=== PATIENT | female | born 1995 | race Two or more races ===

== ENCOUNTER 2025-02-18 08:28 | Emergency (ER) | payer OTHER ==
[~2025-02-18] VITALS: Ht 170.2 cm; Wt 107.0 kg
[2025-02-18 08:57] VITALS: BP 129/85; PULSE 100; RESP 16; TEMP 97.9; O2SAT 99
[2025-02-18] MEDS: ONDANSETRON HCL 4 MG/2 ML VIAL IV ONE (09:33)
--- NOTE | 2025-02-18 10:21 | ED.PDOC ---
GI ASSESSMENT HPI Comments 29 y/o F, presents to the ED for CC of abdominal pain. Patient states, she has been experiencing symptoms of nausea/vomiting onset, x3days ago. Patient further relays, to have associated symptoms of weakness and faintness. Patient reports, to have had a paracentesis prior to commencement of symptoms on Monday (02/14/25); endorses 5L of fluid being removed. Patient comments, being seen by PCP and being told to have x2 growths on her liver concerning for possible cirrhosis. Patient denies disorientation, confusion, headaches with aura, extremity swelling, diarrhea, or melena. No other symptoms or modifying factors are present at this time. Chief Complaint: Nausea/Vomiting Time Seen by MD: 09:50 Reviewed Notes: Nurses Notes, Medications, Allergies Allergies: Coded Allergies: NO KNOWN ALLERGIES (Unverified , 02/18/25) Information Source: Patient Mode of Arrival: Ambulatory Timing: Days Duration: Since onset Prehospital treatment: None Vomitus: Watery Stool: Normal Severity: Moderate Recent: None Recent Hx of: None Modifying Factors: Nothing Associated sign and symptoms: Nausea, Vomiting, Faintness Past Medical History PAST MEDICAL HISTORY: Denies Surgical History: Denies all surgeries ARBORIST History: Denies all ARBORIST Hx Family History Family History: Unknown Social History Smoker: Non-Smoker Alcohol: Denies ETOH Use Drugs: Denies Drug Use Lives In: Home Constitutional: denies: chills, diaphoresis, fatigue, fever, malaise, sweats, weakness, others EENTM: denies: blurred vision, double vision, ear bleeding, ear discharge, ear drainage, ear pain, ear ringing, eye pain, eye redness, hearing loss, mouth pain, mouth swelling, nasal discharge, nose bleeding, nose congestion, nose pain, photophobia, tearing, throat pain, throat swelling, voice changes, others Respiratory: denies: cough, hemoptysis, orthopnea, SOB at rest, shortness of breath, SOB with excertion, stridor, wheezing, others Cardiovascular: denies: chest pain, dizzy spells, diaphoresis, Dyspnea on exertion, edema, irregular heart beat, left arm pain, lightheadedness, palpitations, PND, syncope, others Gastrointestinal: reports: nausea, vomiting; denies: abdomen distended, abdominal pain, blood streaked bowels, constipated, diarrhea, dysphagia, difficulty swallowing, hematemesis, melena, poor appetite, poor fluid intake, rectal bleeding, rectal pain, others Genitourinary: denies: abnormal vagina bleeding, burning, dyspareunia, dysuria, flank pain, frequency, hematuria, incontinence, pain, , vagina discharge, urgency, others Neurological: reports: dizziness, others (faintness); denies: fainting, headache, left sided numbness, left sided weakness, numbness, paresthesia, pre- existing deficit, right sided numbness, right sided weakness, seizure, speech problems, tingling, tremors, weakness Musculoskeletal: denies: back pain, gout, joint pain, joint swelling, muscle pain, muscle stiffness, neck pain, others Integumetry: denies: bruises, change in color, change in hair/nails, dryness, laceration, lesions, lumps, rash, wounds, others Allergic/Immunocompromised: denies: Difficulty Healing, Frequent Infections, Hives, Itching, others Hematologic/Lymphatic: denies: anemia, blood clots, easy bleeding, easy bruising, swollen glands, others Endocrine: denies: excessive hunger, excessive sweating, excessive thirst, excessive urination, flushing, intolerance to cold, intolerance to heat, une xplained weight gain, unexplained weight loss, others Psychiatric: denies: anxiety, bipolar disorder, depression, hopeless, panic disorder, schizophrenia, sleepless, suicidal, others All Other Systems: Reviewed and Negative Physical Exam General Appearance: No Apparent Distress, Normal HEENT: Normal ENT Inspection, Pharynx Normal, TMs Normal Neck: Full Range of Motion, Non-Tender, Normal, Normal Inspection Respiratory: Chest Non-Tender, Lungs Clear, No Accessory Muscle Use, No Respiratory Distress, Normal Breath Sounds Cardiovascular: No Edema, No JVD, No Murmur, No Gallop, Normal Peripheral Pul ses, Regular Rate/Rhythm Breast Exam: Deferred Gastrointestinal: No Organomegaly, Non Tender, No Pulsatile Mass, Normal Bowel Sounds, Soft Genitalia: Deferred Pelvic: Deferred Rectal: Deferred Extremities: No calf tenderness, Normal capillary refill, Normal inspection, Normal range of motion, Non-tender, No pedal edema Musculoskeletal : Apperance: Normal Neurologic: Alert, tow motor driver II-XII nml as Tested, No Motor Deficits, Normal Affect, Normal Mood, No Sensory Deficits Cerebellar Function: Normal Reflexes: Normal Skin: Dry, Normal Color, Warm Lymphatic: No Adenopathy Was a procedure done? Was a procedure done?: No GI differential Dx Differential Diagnosis: Gastritis/PUD, Gastroenteritis, Bacterial, Viral, Other (liver cirrhosis) X-Ray, Labs, Meds, VS Vital Signs Date Time Temp Pulse Resp B/P (MAP) Pulse Ox O2 Delivery O2 Flow Rate FiO2 02/18/25 08:57 97.9 100 16 129/85 (100) 99 97.9 02/18/25 08:30 97.5 113 20 140/109 98 97.5 Lab Test 02/18/25 09:56 Range/Units White Blood Count 9.8 4.4-10.8 10^3/uL Red Blood Count 6.06 H 4.0-5.20 10^6/uL Hemoglobin 17.3 H 12.2-16.2 g/dL Hematocrit 51.5 H 36.0-46.0 % Mean Corpuscular Volume 85.0 80.0-100.0 fL Mean Corpuscular Hemoglobin 28.6 28.0-32.0 pg Mean Corpuscular Hemoglobin Concent 33.7 32.0-36.0 g/dL Red Cell Distribution Width 16.2 H 11.8-14.3 % Platelet Count 321 140-450 10^3/uL Mean Platelet Volume 10.0 6.9-10.8 fL Neutrophils (%) (Auto) 75.0 37.0-80.0 % Lymphocytes (%) (Auto) 16.4 10.0-50.0 % Monocytes (%) (Auto) 7.2 0.0-12.0 % Eosinophils (%) (Auto) 0.6 0.0-7.0 % Basophils (%) (Auto) 0.8 0.0-2.0 % Neutrophils # (Auto) 7.3 1.6-8.6 10 ^3/uL Lymphocytes # (Auto) 1.6 0.4-5.4 10 ^3/uL Monocytes # (Auto) 0.7 0-1.3 10 ^3/uL Eosinophils # (Auto) 0.1 0-0.8 10 ^3/uL Basophils # (Auto) 0.1 0-0.2 10 ^3/uL Nucleated Red Blood Cells 0.1 % Sodium Level 139 136-145 mmol/L Potassium Level 3.3 L 3.5-5.1 mmol/L Chloride Level 99 98-107 mmol/L Carbon Dioxide Level 25 20-31 mmol/L Anion Gap 15 5-15 Blood Urea Nitrogen 9 9-23 mg/dL Creatinine 1.00 0.550-1.02 mg/dL Glomerular Filtration Rate Calc 77 >90 mL/min BUN/Creatinine Ratio 9.0 L 10.0-20.0 Serum Glucose 118 H 74-106 mg/dL Calcium Level 11.6 H 8.7-10.4 mg/dL Total Bilirubin 0.7 0.2-1.0 mg/dL Direct Bilirubin 0.3 <0.3 mg/dL Aspartate Amino Transferase (AST) 34 13-40 U/L Alanine Aminotransferase (ALT) 10 7-40 U/L Alkaline Phosphatase 77 46-116 U/L Total Protein 8.4 H 5.7-8.2 g/dL Albumin 5.0 H 3.2-4.8 g/dL Lipase 59 H 12-53 U/L X-Ray, Labs, Meds, VS Comment Patient is here today with the above complaints. Was made to do a possible paracentesis to evaluate for evidence of SBP another testing however the patient eloped from the waiting room. Attempted to call the patient however no answer. Voicemail was left with a callback. Patient eloped from the ER. Time of 1ST Reevaluation: 10:20 Reevaluation 1ST: Unchanged Patient Education/Counseling: Diagnosis, Treatment Family Education/Counseling: No Family Present SEPSIS Sepsis Screen Date sepsis recognized/suspect: Feb 18, 2025 Time Sepsis recognized/suspect: 829 Recent Procedure: No On Antibiotic Therapy: No Respiratory Rate >20: No Heart Rate >90: Yes Temp<36 C (96.8 F) or >38.3 C: No SBP <90 or MAP <65 mmHG: No New Acute Mental Status Change: No Is the patient on CPAP, BIPAP,: No Vital Signs Date Time Temp Pulse Resp B/P (MAP) Pulse Ox O2 Delivery O2 Flow Rate FiO2 02/18/25 08:57 97.9 100 16 129/85 (100) 99 97.9 02/18/25 08:30 97.5 113 20 140/109 98 97.5 Laboratory Tests Test 02/18/25 09:56 White Blood Count 9.8 10^3/uL (4.4-10.8) Departure 1 Departure Time of Disposition: 19:51 Impression: Primary Impression: Eloped from emergency department Additional Impressions: Abdominal pain History of cirrhosis Disposition: LEFT AWOL/ELOPED Condition: Guarded Critical Care Note Critical Care Time?: No Stability Stability form required: No Heart Score Heart Score: Heart Score Response (Comments) Value History N/A 0 EKG N/A 0 Age N/A 0 Risk Factors N/A 0 Troponin N/A 0 Total 0 I personally scribed for GRACIE COLEMAN MD ([email or web address]) on 02/18/25 at 10:21. Electronically submitted by Gemma Carcamo ([email or web address]). GRACIE COLEMAN MD Feb 18, 2025 10:21
[2025-02-18 10:22] LABS: Hematocrit 51.5 % (36.0-46.0); Hemoglobin 17.3 g/dL (12.2-16.2); Mean Corpuscular Hemoglobin 28.6 pg (28.0-32.0); Mean Corpuscular Volume 85.0 fL (80.0-100.0); Nucleated Red Blood Cells % 0.1 %
[2025-02-18 10:41] LABS: Alanine Aminotransferase 10 U/L (7-40); Alkaline Phosphatase 77 U/L (46-116); Anion Gap 15 (5-15); BUN/Creatinine Ratio 9.0 (10.0-20.0); Bilirubin, Direct 0.3 mg/dL (<0.3); Bilirubin, Total 0.7 mg/dL (0.2-1.0); Blood Urea Nitrogen 9 mg/dL (9-23); Carbon Dioxide 25 mmol/L (20-31); Chloride 99 mmol/L (98-107); Sodium 139 mmol/L (136-145)
[2025-02-18 10:44] LABS: Albumin 5.0 g/dL (3.2-4.8); Calcium 11.6 mg/dL (8.7-10.4); Glucose 118 mg/dL (74-106); Potassium 3.3 mmol/L (3.5-5.1); Total Protein 8.4 g/dL (5.7-8.2)
[2025-02-18] MEDS: POTASSIUM CHL 20 Meq TABLET PO ONE (12:04)
== END 2025-02-18 12:37 | disposition left against medical advice (07) ==
LOC: ER 08:28
DX: R10.9 Unspecified abdominal pain (principal)
CPT/HCPCS: 36415; 80048; 80076; 83690; 85025